=== PATIENT | female | born 1945 | race Two or more races ===

== ENCOUNTER 2022-03-20 12:35 | Emergency (ER) | payer MEDICARE ==
[~2022-03-20] VITALS: Ht 154.9 cm; Wt 65.0 kg
[2022-03-20 12:35] VITALS: BP 134/59
[2022-03-20 15:20] LABS: Basophils # (auto) 0 10 ^3/uL (0-0.2); Basophils % (auto) 0.3 % (0.0-2.0); Eosinophils # (auto) 0 10 ^3/uL (0-0.8); Eosinophils % (auto) 0.1 % (0.0-7.0); Hematocrit 36.7 % (36.0-46.0); Lymphocytes # (auto) 0.9 10 ^3/uL (0.4-5.4); Lymphocytes % (auto) 7.8 % (10.0-50.0); Mean Corpuscular Hemoglobin 29.6 pg (28.0-32.0); Mean Corpuscular Hgb Conc. 32.8 g/dL (32.0-36.0); Mean Corpuscular Volume 90.4 fL (80.0-100.0); Monocytes # (auto) 0.5 10 ^3/uL (0-1.3); Monocytes % (auto) 4.5 % (0.0-12.0); Neutrophils # (auto) 9.9 10 ^3/uL (1.6-8.6); Neutrophils % (auto) 87.3 % (37.0-80.0); Red Blood Cells 4.06 10^6/uL (4.0-5.20); Red Cell Distribution Width 14.4 % (11.8-14.3); White Blood Cell 11.3 10^3/uL (4.4-10.8)
[2022-03-20 15:40] LABS: Magnesium 2.2 mg/dL (1.6-2.6); Potassium 3.7 mmol/L (3.5-5.1)
[2022-03-20 15:58] LABS: BUN/Creatinine Ratio 24.3; Bilirubin, Total 0.7 mg/dL (0.2-1.0); Total Protein 7.7 g/dL (6.4-8.2)
[2022-03-20 16:40] LABS: Lactic Acid w/Reflex 3.8 mmol/L (0.4-2.0)
== END 2022-03-20 17:11 | disposition left against medical advice (07) ==
LOC: ER 12:44
DX: R53.1 Weakness (principal); R42 Dizziness and giddiness; R07.89 Other chest pain; Z53.21 Procedure and treatment not carried out due to patient leaving prior to being seen by health care provider
CPT/HCPCS: 36415; 71045; 80053; 83605; 83735; 83880; 84484; 85025; 93005